=== PATIENT | female | born 1960 | race Hispanic/Latino ===

== ENCOUNTER 2024-07-20 03:26 | Emergency (ER) | payer OTHER ==
[~2024-07-20] VITALS: Ht 165.1 cm; Wt 68.5 kg
[2024-07-20 03:32] VITALS: TEMP 99.2
[2024-07-20 04:13] VITALS: PULSE 70; RESP 18
[2024-07-20] MEDS: HYDRALAZINE HCL 20 MG/ML VIAL IV ONE (04:29)
[2024-07-20 05:40] VITALS: BP 115/63; PULSE 62; RESP 18; TEMP 99.2; O2SAT 98
== END 2024-07-20 05:40 | disposition home or self-care (01) ==
LOC: VACCPMC 03:32 → FSED 05:40
DX: R50.9 Fever, unspecified (principal); E11.65 Type 2 diabetes mellitus with hyperglycemia; I10 Essential (primary) hypertension; F41.9 Anxiety disorder, unspecified
CPT/HCPCS: 71045; 80053; 80307; 81003; 84484; 85025; 93005; 99283

== ENCOUNTER 2024-09-03 18:18 | Inpatient (IN) | payer OTHER ==
[~2024-09-03] VITALS: Ht 165.1 cm; Wt 68.9 kg
[2024-09-03 19:20] VITALS: TEMP 98.5
[2024-09-03 19:49] LABS: BASOPHILS % 0.5 % (0.0-1.0); EOSINOPHILS # (AUTO) 0.2 (0.0-0.4); EOSINOPHILS % 2.9 % (0.0-6.0); HEMATOCRIT 42.9 % (34.2-44.1); HEMOGLOBIN 13.4 g/dL (12.0-16.0); LYMPHOCYTES % 33.8 % (18.0-39.1); MEAN CORPUSCULAR HEMOGLOBIN 31.6 pg (28-32); MEAN CORPUSCULAR HGB CONC 31.2 g/dL (31-35); MEAN CORPUSCULAR VOLUME 101.2 fL (81-99); MONOCYTES # (AUTO) 0.4 (0.2-0.8); MONOCYTES % 6.8 % (4.4-11.3); NEUTROPHILS # (AUTO) 3.3 (2.1-6.9); NEUTROPHILS % 55.7 % (38.7-80.0); PLATELET COUNT 215 x10e3/uL (140-360); RED BLOOD COUNT 4.24 x10e6/uL (3.6-5.1); RED CELL DISTRIBUTION WIDTH 12.4 % (11.7-14.4); WHITE BLOOD COUNT 5.85 x10e3/uL (4.8-10.8)
[2024-09-03 20:16] LABS: ALBUMIN/GLOBULIN RATIO 1.2 (0.8-2.0); ANION GAP 18.5 mmol/L (8-16); BILIRUBIN,TOTAL 0.3 mg/dL (0.2-1.2); CREATININE, SERUM 0.82 mg/dL (0.57-1.11); POTASSIUM 4.5 mmol/L (3.5-5.1); TOTAL PROTEIN 7.4 g/dL (6.5-8.1)
[2024-09-03 20:37] LABS: CLARITY,URINE CLEAR (CLEAR); COLOR,URINE YELLOW (YELLOW); PH,URINE 5.5 (5 - 7)
[2024-09-03 20:38] LABS: BILIRUBIN,URINE NEGATIVE (NEGATIVE); GLUCOSE, URINE 500 (NEGATIVE); KETONES,URINE NEGATIVE (NEGATIVE); LEUKOCYTE ESTERASE ,URINE NEGATIVE (NEGATIVE); NITRITE,URINE NEGATIVE (NEGATIVE); PROTEIN,URINE DIPSTICK NEGATIVE (NEGATIVE); URINE UROBILINOGEN 0.2 mg/dL (0.2 - 1)
[2024-09-03 21:00] LABS: BACTERIA,URINE RARE /HPF; EPITHELIAL CELLS,URINE RARE /LPF; RBC,URINE 0-5 /HPF (0-5); WBC,URINE (MAN) 0-5 /HPF (0-5)
[2024-09-03 21:42] VITALS: RESP 18
[2024-09-03 22:47] VITALS: PULSE 80
[2024-09-03] MEDS ORDERED: ONDANSETRON HCL INJ 2MG/ML 2ML 2 MG/ML VIAL IV PRN (23:45)
[2024-09-03] MEDS ORDERED: Morphine 4mg INJECTION 4 MG/ML INJ IV PRN (23:45)
[2024-09-04] VITALS (11 sets, daily range): BP systolic 124–152; BP diastolic 59–80; PULSE 61–74; RESP 16–20; TEMP 97.5–98.7; O2SAT 95–100
[2024-09-04] MEDS ORDERED: HYDRALAZINE HCL 20 MG/ML VIAL IV PRN (00:15)
[2024-09-04] MEDS: SODIUM CHLORIDE 0.9% 1000ML 1,000 ML IV SCH (00:23)
[2024-09-04] MEDS: METRONIDAZOLE 500MG/NS 100ML 100 ML IV SCH (01:12)
[2024-09-04] MEDS ORDERED: TRIJARDY XR 121 EACH PO (01:23)
[2024-09-04] MEDS ORDERED: METOPROLOL SUCC50 MG PO (01:24)
[2024-09-04] MEDS ORDERED: GLIMEPIRIDE2 MG PO (01:25)
[2024-09-04] MEDS ORDERED: LOSARTAN POTASS25 MG PO (01:26)
[2024-09-04 06:58] LABS: BASOPHILS % 0.7 % (0.0-1.0); EOSINOPHILS # (AUTO) 0.2 (0.0-0.4); EOSINOPHILS % 3.5 % (0.0-6.0); HEMOGLOBIN 12.7 g/dL (12.0-16.0); LYMPHOCYTES % 34.3 % (18.0-39.1); MEAN CORPUSCULAR HEMOGLOBIN 31.8 pg (28-32); MEAN CORPUSCULAR VOLUME 102.8 fL (81-99); MONOCYTES # (AUTO) 0.5 (0.2-0.8); MONOCYTES % 8.1 % (4.4-11.3); NEUTROPHILS # (AUTO) 3.2 (2.1-6.9); NEUTROPHILS % 53.2 % (38.7-80.0); PLATELET COUNT 194 x10e3/uL (140-360); RED BLOOD COUNT 3.99 x10e6/uL (3.6-5.1); RED CELL DISTRIBUTION WIDTH 12.1 % (11.7-14.4); WHITE BLOOD COUNT 5.94 x10e3/uL (4.8-10.8)
[2024-09-04 07:23] LABS: ALBUMIN 3.6 g/dL (3.5-5.0); BILIRUBIN,TOTAL 0.5 mg/dL (0.2-1.2); CALCIUM 8.8 mg/dL (8.4-10.2); CREATININE, SERUM 0.7 mg/dL (0.57-1.11); TOTAL PROTEIN 6.7 g/dL (6.5-8.1)
[2024-09-04 07:24] LABS: ALBUMIN/GLOBULIN RATIO 1.2 (0.8-2.0)
[2024-09-04] MEDS: INSULIN REGULAR, HUMAN 100 UNIT/1 ML SQ SCH ×2 (07:30→11:30)
[2024-09-04] MEDS ORDERED: ALBUTEROL/IPRATROPIUM 3 ML NEB NEB PRN (08:15)
[2024-09-04] MEDS ORDERED: DEXTROSE 50% SYRINGE 50 ML IV PRN ×2 (08:15)
[2024-09-04] MEDS ORDERED: METOPROLOL TARTRATE INJ 1 MG/ML VIAL IV PRN (08:15)
[2024-09-04] MEDS: FAMOTIDINE 20 MG/2 ML VIAL IV SCH (10:01)
== END 2024-09-04 20:35 | disposition home or self-care (01) | DRG 440 ==
LOC: ER 22:17 → MERGE 23:36 → ERHOLD 23:36 → MED/SURG3 09-04 00:54
PROVIDERS: ADMIT Internal Medicine; ATTEND Internal Medicine
DX: K85.10 Biliary acute pancreatitis without necrosis or infection (principal); K80.20 Calculus of gallbladder without cholecystitis without obstruction; I10 Essential (primary) hypertension; E11.9 Type 2 diabetes mellitus without complications; Z79.84 Long term (current) use of oral hypoglycemic drugs; M85.652 Other cyst of bone, left thigh; K57.30 Diverticulosis of large intestine without perforation or abscess without bleeding; Z79.899 Other long term (current) drug therapy
CPT/HCPCS: 36415; 74177; 74181; 76705; 80053; 80061; 81001; 83036; 83690; 85025; 94799; 99284; J0692; J2470; J7030